=== PATIENT | female | born 1970 | race Caucasian/White ===

== ENCOUNTER 2023-06-12 06:28 | Day surgery (SDC) | payer BC, SELFPAY ==
[2023-06-12 08:16] VITALS: BMI 59.5
[2023-06-12 08:18] VITALS: BMI 59.5
[2023-06-12 08:19] VITALS: BP 124/74
[2023-06-12 08:38] LABS: Glucose - Point of Care 77 mg/dl (70-99)
[2023-06-12 11:10] VITALS: BP 116/62
[2023-06-12 11:15] VITALS: BP 106/64
[2023-06-12 11:30] VITALS: BP 128/70
== END 2023-06-12 11:55 | disposition home or self-care (01) ==
LOC: GI 06:28
PROVIDERS: ATTENDING PHYSICIAN Internal Medicine Gastroenterology
DX: Z12.11 Encounter for screening for malignant neoplasm of colon (principal); D17.5 Benign lipomatous neoplasm of intra-abdominal organs; K63.5 Polyp of colon; D12.2 Benign neoplasm of ascending colon; Z83.710 Family history of adenomatous and serrated polyps
CPT/HCPCS: 45385; 88305; 82962

== ENCOUNTER → 2023-07-15 16:30 | Outpatient (REF) | payer BC, SELFPAY | LOC: WDC 16:30 | PROVIDERS: ATTENDING PHYSICIAN Nurse Practitioner Family; FAMILY PHYSICIAN Physician Assistant Medical | DX: Z12.31 Encounter for screening mammogram for malignant neoplasm of breast (principal) | CPT/HCPCS: 77063; 77067 ==

== ENCOUNTER → 2023-09-23 13:37 | Outpatient (REF) | payer BC, SELFPAY | LOC: HWRAD 13:37 | PROVIDERS: ATTENDING PHYSICIAN Internal Medicine Gastroenterology; FAMILY PHYSICIAN Physician Assistant Medical | DX: K76.0 Fatty (change of) liver, not elsewhere classified (principal) | CPT/HCPCS: 76700 ==

== ENCOUNTER → 2024-01-22 10:20 | Outpatient (REF) | payer BC, SELFPAY | LOC: HWRAD 10:20 | PROVIDERS: ATTENDING PHYSICIAN Surgery; FAMILY PHYSICIAN Physician Assistant Medical | DX: N20.0 Calculus of kidney (principal) | CPT/HCPCS: 74018 ==

== ENCOUNTER 2024-07-02 13:20 | Emergency (ER) | payer BC, SELFPAY ==
[2024-07-02 13:28] VITALS: BP 145/90
--- NOTE | 2024-07-02 14:24 | ED.GENMED ---
History of Present Illness
General
Chief Complaint: Flank Pain
Source: patient
Exam Limitations: none
Time Seen by Provider: 07/02/24 14:08
History of Present Illness
History of Present Illness:
53yoF with a history of hypertension, hyperlipidemia, type 2 diabetes, and kidney stones presenting for evaluation of right flank pain. Symptoms began 4 days ago. Pain became constant today and pain radiates to the RUQ. Capo was initially
helping but is not longer providing any relief. She has a history of kidney stones and this feels the same although she has never had a kidney stone on the right side before. She reports nausea but denies any vomiting. No fevers, chills, urinary
symptoms, rash. No shortness of breath or pleuritic pain. Last menstrual period was 8 years ago.
Past History
Past History
ED Past Medical History: HTN, Hypercholesterolemia, NIDDM (Diet controlled) and Other (Kidney stones)
ED Past Surgical History: Other (Gastric sleeve july 07, 2014)
Social History
Tobacco: Non-smoker
Alcohol: None
Personal:
Living: with family
Employment: Employed
Phy Exam
Physical Exam
Physical Exam:
Appears uncomfortable, non-toxic
General Physical Exam
General Presentation: well appearing
General Skin: warm and dry
General Habitus: normal
General Mental: alert
ENT Exam
ENT Exam: normocephalic
Cardiovascular Exam
Cardiovascular Exam: regular rate/rhythm
Pulmonary Exam
Pulmonary Exam: lungs clear, no respiratory distress, no rales, no crackles, no rhonchi and no wheezing
Gastrointestinal Exam
Gastrointestinal Exam: soft, non distended, cva tenderness and other (No visualized rash. +R CVA tenderness and RUQ tenderness. Abdomen soft without rebound or guarding.)
Neurological Exam
Neurological Exam: alert
[place] Coma Scale
Eye Opening: Spontaneous
Verbal Response: Oriented
Motor Response: Obeys Commands
GCS Total Score: 15
Skin Exam
Skin Exam: normal color and warm/dry
Psychiatric Exam
Psychiatric Exam: normal mood/affect
Course
Orders/Labs/Results
Orders:
Orders
07/02/24 14:24
CT Abd/pel Without Iv Or Oral Urgent
Comment:
Reason For Exam: R flank pain
0.9% Sodium Chloride 1000 ml [Nss] 1,000 ml IV BOLUS
HYDROmorphone [Dilaudid] 1 mg IV NOW STA
Ketorolac [Toradol] 15 mg IV NOW STA
Ondansetron Injectable [Zofran] 4 mg IV NOW STA
07/02/24 14:36
Complete Blood Count/With Diff Urgent
Comprehensive Metabolic Panel Urgent
Lipase Urgent
Urinalysis Reflex To Culture Urgent
Date Specimen was Collected: 07/02/24
Time Specimen was Collected: 14:14
07/02/24 16:04
US Abdomen Complete/Upper Urgent
Comment:
Reason For Exam: RUQ pain
07/02/24 16:12
Ketorolac [Toradol] 15 mg IV NOW STA
07/02/24 17:26
diazePAM [Valium Injection] 5 mg IV NOW STA
Abnormal Lab Results
07/02/24
14:36
Lymphocytes % 16.3 L %
(20.5-51.1)
BUN 18 H mg/dl
(7-17)
Glucose 113 H mg/dl
(70-99)
07/02/24 14:36
07/02/24 14:36
Vital Signs
Initial and Last Documented VS:
Initial Vital Signs
Temp Pulse Resp BP Pulse Ox
97.8 F 64 16 145/90 100
07/02/24 13:28 07/02/24 13:28 07/02/24 13:28 07/02/24 13:28 07/02/24 13:28
Last Documented Vital Signs
Temp Pulse Resp BP Pulse Ox
97.8 F 72 18 156/72 99
07/02/24 13:28 07/02/24 18:16 07/02/24 18:16 07/02/24 18:16 07/02/24 18:16
MDM/Problems Addressed
Differential Diagnosis Includes:
53yoF here with R flank pain x 4 days. Radiates to the RUQ. Associated with nausea. Hx of kidney stones. She is mildly hypertensive with otherwise normal vitals. She appears uncomfortable due to pain but is non-toxic. +R CVA tenderness on exam as
well as RUQ tenderness. Differential diagnosis includes but is not limited to: kidney stone, pyelonephritis, cholecystitis, musculoskeletal pain
Initial ED plan: Check abdominal labs, UA, and CT abdomen without contrast. IV Dilaudid, Toradol, Zofran, and fluid bolus for symptoms.
*Critical Care Note
Total Time (30-74mins, 75-104mins- exclusive of procedures): Not Applicable
Update Note
Update Note:
Labs unremarkable including normal white count and renal function. UA is normal without hematuria or signs of infection. CT is negative for ureterolithiasis or hydronephrosis. RUQ ultrasound added which shows cholelithiasis which she has a known
history of but no evidence of cholecystitis. On reassessment, patient reports pain worse with sitting up and certain positions. IV Valium given with significant improvement of her pain. Suspect musculoskeletal pain. No indication for
hospitalization. Supportive care discussed including heat and Tylenol/ibuprofen. Prescription provided for Valium. Advised close f/u with PCP and strict ED return precautions discussed. Patient in agreement with plan and she was discharged in stable
condition.
ED Attending Note
-
Portions of this chart may have been created with voice recognition software.� Occasional wrong word or��sound alike� substitutions may have occurred due to the inherent limitations of voice recognition software.
Discharge Plan
Departure
Patient Disposition: Home (Routine Discharge)
Date of Disposition: 07/02/24
Time of Disposition: 18:18
Patient with high blood pressure during this ER visit?: Yes
Discharge Problem:
Right flank pain
Instructions: Flank Pain (DC)
Prescriptions:
New
diazepam [Valium] 5 mg tablet
5 mg PO TID PRN (Reason: muscle spasm) Qty: 9 0RF
No Action
valsartan-hydrochlorothiazide [Diovan HCT] 1 EACH tablet
1 tab PO AMHS
Rx Instructions:
80MG-12.5MG
simvastatin 20 MG tablet
40 mg PO HS
levothyroxine [Synthroid] 125 mcg Tablet
125 mcg PO DAILY@07
sertraline [Zoloft] 50 mg Tablet
50 mg PO DAILY
Mounjaro 12.5 mg/0.5 mL Pen Injector
12.5 mg SC QWEEK
Referrals:
Jaycee Gimenez PA-C [Family Provider] -
Activity Restrictions/Additional Instructions:
Apply heat to affected area. Take Tylenol 650mg and ibuprofen 600mg every 6 hours as needed. Take Valium (muscle relaxer) as needed for breakthrough pain. Do not drive or drink alcohol while taking Valium.
Please follow-up with your family doctor on Friday. Return to the ER with any worsening symptoms including fevers, severe pain, jaundice.
Interventions
Interventions:
*Risk Screen - Suicide Last Done: 07/02/24 13:28
*Neglect/Abuse Screening Last Done: 07/02/24 13:28
*Nursing Disposition Last Done: 07/02/24 18:28
ND-Sfwmzv-Rfmlxdtbnt Assessment Last Done: 07/02/24 14:11
ED-Female Genitourinary Assessment Last Done: 07/02/24 14:11
Discharge Date and Time
Discharge Date/Time: 07/02/24 18:28
Print Language: [email or web address]
[2024-07-02] MEDS: TORADOL 15 MG IV ×2 (14:36→16:16)
[2024-07-02] MEDS: DILAUDID 1 MG IV (14:37)
[2024-07-02] MEDS: NSS 1000 IV (14:37)
[2024-07-02] MEDS: ZOFRAN 4 MG IV (14:37)
[2024-07-02 14:57] LABS: % Basophils 0.5 % (0-2); % Eosinophils 1.9 % (0-6); % Immature Granulocytes 0.2 % (0-0.5); % Lymphocytes 16.3 % (20.5-51.1); % Monocytes 7.1 % (1.7-9.3); Absolute Eosinophils 0.2 10^3/uL (0-0.7); Absolute Lymphocytes 1.3 10^3/uL (1.2-3.4); Absolute Monocytes 0.6 10^3/uL (0.1-0.6); Absolute Neutrophils 6.1 10^3/uL (1.4-6.5); Hematocrit 39.8 % (37.0-47.0); Hemoglobin 13.4 g/dL (12.0-16.0); Mean Corp Hgb Conc. 33.7 g/dL (33.0-37.0); Mean Corpuscular Hgb 29.3 pg (27.0-31.0); Mean Corpuscular Volume 87.1 fL (81.0-99.0); Mean Platelet Volume 9.6 fL (7.4-10.4); Nucleated Red Blood Cells % 0 %; Platelet Count 215 10^3/uL (130-400); Red Blood Cell Count 4.57 10^6/uL (4.20-5.40); Red Cell Dist. Width 14.1 % (11.5-14.5); White Blood Cell Count 8.2 10^3/uL (4.8-10.8)
[2024-07-02 15:04] LABS: Urine Albumin Negative (Neg - Trace); Urine Bilirubin Negative (Negative); Urine Character Clear (Clear); Urine Color Yellow; Urine Glucose Negative (Negative); Urine Ketone Negative (Negative); Urine Leukocyte Negative (Negative); Urine Nitrite Negative (Negative); Urine Occult Blood Negative (Negative); Urine Urobilinogen Negative (Neg - 1+)
[2024-07-02 15:18] LABS: ALT (SGPT) 18 U/L (0-35); AST (SGOT) 22 U/L (14-36); Albumin 3.9 g/dl (3.5-5.0); Alkaline Phosphatase 109 U/L (38-126); Blood Urea Nitrogen 18 mg/dl (7-17); Calcium 9.5 mg/dl (8.4-10.2); Carbon Dioxide 28 mmol/L (22-30); Chloride 103 mmol/L (98-107); Glucose 113 mg/dl (70-99); Lipase 227 U/L (23-300); Potassium 4.6 mmol/L (3.5-5.1); Sodium 136 mmol/L (135-145); Total Bilirubin 0.7 mg/dl (0.2-1.3); Total Protein 6.8 g/dl (6.3-8.2); eGFR > 60.00
[2024-07-02 15:31] VITALS: BP 148/76
[2024-07-02] MEDS: VALIUM INJECTION 5 MG IV (17:32)
[2024-07-02 18:16] VITALS: BP 156/72
== END 2024-07-02 18:28 | disposition home or self-care (01) ==
LOC: EMR 13:20
PROVIDERS: Physician Assistant; EMERGENCY PHYSICIAN Emergency Medicine; FAMILY PHYSICIAN Physician Assistant Medical
DX: R10.9 Unspecified abdominal pain (principal); E78.00 Pure hypercholesterolemia, unspecified; E11.9 Type 2 diabetes mellitus without complications; I10 Essential (primary) hypertension; Z87.442 Personal history of urinary calculi
CPT/HCPCS: 99284; 96374; 96375; 96376; 96361; 74176; 76700; 80053; 81003; 83690; 85025

== ENCOUNTER → 2024-09-17 10:35 | Outpatient (REF) | payer BC, SELFPAY | LOC: HWWDC 10:35 | PROVIDERS: ATTENDING PHYSICIAN Nurse Practitioner Family; FAMILY PHYSICIAN Physician Assistant Medical | DX: Z12.31 Encounter for screening mammogram for malignant neoplasm of breast (principal) | CPT/HCPCS: 77063; 77067 ==

== ENCOUNTER → 2025-01-24 11:46 | Outpatient (REF) | payer BC, SELFPAY | LOC: HWRAD 11:46 | PROVIDERS: ATTENDING PHYSICIAN Surgery; FAMILY PHYSICIAN Physician Assistant Medical | DX: N20.0 Calculus of kidney (principal) | CPT/HCPCS: 74018 ==